=== PATIENT | male | born 1970 | race Caucasian/White ===

== ENCOUNTER 2016-12-08 11:55 | Emergency (ER) | payer OTHER ==
--- OUTSIDE RECORDS SUMMARY | 2016-12-08 12:23 | XMS REPORT | Continuity of Care Document ---
:1970 Author Organization [facility] ([facility]) Address [address] [place] [address] Phone [phone] Care Team Providers Name Role Phone Kary Bray Primary Care Provider [phone] Source Comments This disclosure is being made pursuant to the Care Everywhere program, applicable federal and state laws, and may not contain all informaitonavailable regarding this patient.[facility] ([facility]) Active Allergies and Adverse Reactions Allergen Noted Date Severity Reactions Comments Codeine Unknown Fish Containing Products Unknown Other Agent Unknown contrast dye Current Medications Prescription Sig. Disp. Refills Start Date End Date Status MELOXICAM PO Take 7.5 mg by mouth Active daily. Indications: RA aspirin 325 mg tablet Take 325 mg by mouth Active daily. Indications: paroxysmal A. fib ranitidine (ZANTAC) Take 150 mg by mouth Active 150 mg tablet 2 times daily. Indications: HEARTBURN predniSONE 10 mg 6 tabs for 2 days , 5 42 Tab 0 12/14/2012 Active tablet tabs for 2 days, 4 tabs for 2 days, 3 tabs for 2 days, 2 tabs for 2 days, 1 tab for 2 days. Indications: RA flare atenolol 25 mg tablet Take 1 Tab by mouth 30 Tab 1 11/07/2013 Active daily. Pt needs apt for further refills. Indications: HYPERTENSION Active Problems Problem Noted Date Rheumatoid factor positive 12/14/2012 Joint pain 12/14/2012 HTN (hypertension) 11/14/2012 Paroxysmal Atrial fibrillation in 90s 11/14/2012 Overview: 2/2 cocaine abuse requiring cardioversion x 2, the last being in 1987 Resolved Problems Problem Noted Date Resolved Date C. difficile diarrhea 11/14/2012 11/14/2012 SURGERY FOLLOWUP, UNSPEC 10/02/2002 11/14/2012 OLD DISRUPT ANT CRUCIATE 06/28/2002 11/14/2012 Social History Tobacco Use Types Packs/Day Years Used Date Never Smoker Smokeless Tobacco: Never Used Alcohol Use Drinks/Week oz/Week Comments No Last Filed Vital Signs Vital Sign Reading Time Taken Blood Pressure 132/66 12/16/2012 9:47 AM CDT Pulse 72 12/16/2012 9:47 AM CDT Temperature 35.8 C (96.4 F) 12/14/2012 9:18 AM CDT Respiratory Rate 16 10/07/2012 6:38 PM [employer] Height 1.85 m (6' 0.83") 12/16/2012 9:47 AM CDT Weight 121.3 kg (267 lb 6.7 oz) 12/16/2012 9:47 AM CDT Body Mass Index 35.44 12/16/2012 9:47 AM CDT Oxygen Saturation 98% 12/16/2012 9:47 AM CDT Plan of Care Patient Goal Type Goal Diet Cut out extra servings Blood Pressure Blood Pressure below 130/80 Health Maintenance Due Date Last Done Comments Hepatitis B Vaccine (1 of 3 - Primary 1970 Series) Tdap Vaccine 02/21/1980 MMR Vaccine 1987 Td Vaccine 1987 Influenza Vaccine: Seasonal (#1) 03/02/2016 Lipid Disorder Screening 11/14/2017 11/14/2012, 03/17/2004 Results from Last 3 Months Not on file
[2016-12-08 12:31] LABS: Hematocrit 42.7 % (42.0-52.0); Hemoglobin 14.4 gm/dL (13.5-18.0); Mean Cell Volume 83.1 fl (78-100); Mean Corpuscular Hgb Conc 33.7 g/dl (32-36); Mean Platelet Volume 10.1 fl (6.0-9.5); Neutrophil # 3.8 K/mm3 (1.3-6.0); Neutrophil % 55.3 % (42-75.0); Platelet Count 190 K/mm3 (150-450); Red Blood Count 5.14 M/mm3 (4.7-6.0); Red Cell Distribution Width 12.8 % (11.5-14.0)
--- NOTE | 2016-12-08 12:46 | ERNOTE ---
Medical Problem HPI - Narrative Date of Service: 12/08/16 - General Chief Complaint: General Assessment Time Seen by Provider: 12/08/16 12:05 Source: patient Exam Limitations: no limitations - Immun/Allergies/Home Medications Immunizations: IMMUNIZATION HX Immunizations Up to Date Yes History of Influenza Vaccine No Hx Pneumococcal Vaccination No Allergies/Adverse Reactions: Allergies IVP Dye Allergy (Severe, Uncoded 12/08/16 12:07) resp difficulty Home Medications: HOME MEDICATIONS ALPRAZolam [Xanax] 0.5 mg PO BID PRN 12/08/16 [Last Taken Unknown] Lisdexamfetamine Dimesylate [Vyvanse] 30 mg PO DAILY 12/08/16 [Last Taken Unknown] 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 He relates that he has been having left chest pain for months. He has been seen by Dr Christianson and had stress testing and his heart checked out. He relates the pain is essentially constant left chest and it hurts to push on his chest wall there and when he does he can feel it in his throat. He feels like he has difficulty swallowing and feels like some things come up at times. Vomited once. No abdominal pain. No diarrhea. He feels like he needs to force things down at times. Has never had EGD. TAkes histamine louie for his throat. Timing: other - fluctuating intensity Modifying Factors - (Improves): Present: other - nothing Review of Systems - Review of Systems Constitutional: Absent: fever Respiratory: Absent: shortness of breath Cardiology: Present: See HPI Gastrointestinal/Abdominal: Absent: abdominal pain Genitourinary: Absent: dysuria Musculoskeletal: Present: other - Hx back pain Skin: Absent: rash - Patient's Past Medical History Patient History - Medical: GERD, Kidney stone, Rheumatoid Arthritis, Other Patient History - Cardiac/Respiratory: Atrial Fibrillation, Asthma, Hypertension , Hyperlipidemia Patient History - Cancer: No Hx of Cancer Patient History - Surgical Procedures: Back Surgery, Other, Orthopedic Patient History - Other: None - Family History Father Family History - Medical: Family History - Cardiac/Respiratory: Cardiac Arrest, Hypertension Mother Family History - Medical: - Social History Living Situations: home Abuse History: No History of abuse Psych History: Hx of Anxiety Does anyone smoke in the home?: No Smoking Status: Never smoker Alcohol Use: none Drug Use: marijuana - Immunizations Immunizations Up to Date: Yes Hx Pneumococcal Vaccination: No History of Influenza Vaccine: No Physical Exam - Physical Exam General Appearance: Present: alert, no apparent distress Eye Exam: Normal inspection: bilateral, PERRL: bilateral Ears, Nose, Throat: Present: normal ENT inspection Neck: Present: normal inspection Respiratory: Present: no respiratory distress, normal breath sounds, no accessory muscle use, lungs clear, chest tenderness, other - he has completely reproducible tenderness left upper chest that completely reproduces his chest Sx. Cardiovascular/Chest: Present: regular rate, rhythm, normal peripheral pulses Gastrointestinal/Abdominal: Present: normal bowel sounds, nontender, nondistended, soft. Absent: tenderness Back Exam: Present: normal range of motion Extremity Exam: Present: normal inspection, other - no DVT findings Neurological Exam: Present: alert, normal mood/affect, no motor/sensory deficits Skin Exam: Present: normal color, warm/dry. Absent: skin rash ED Progress - Results and Orders Patient's Lab Results:: I have reviewed the patient's lab results. - Vital Signs Patient's Vital Signs:: I have reviewed the patient's vital signs. Vital Signs: Vital Signs 12/08/16 11:59 Temperature 36.7 C Pulse Rate 81 Respiratory 13 Rate Blood Pressure 142/100 O2 Sat by Pulse 98 Oximetry - EKG EKG: NSR EKG read: Interp. by me EKG Comments: NSR rate 72. No evidence of STEMI. - X-Ray X-Ray #1 X-Ray: chest Interpretation: Reviewed by me X-ray Comments: I reviewed official CXR report and discussed this with the patient. He was notified of findings that need to be followed-up with his primary doctor. - Progress/Reassessment Chief Complaint: General Assessment Progress Note-Subjective: 12/08/16 13:12 Nothing to suggest PE or aortic dissection clinically. No evidence of ACS, prolonged Sx with neg trop, no need for second trop and completely reproducible Sx with chest wall Sx. His primary c/o was difficulty swallowing, not acte but gradually getting worse over last 2 months. No esophageal obstruction at this time but does need f/u for EGD. Departure - Departure Clinical Impression: Atypical chest pain Disposition: Home self-care Condition: Stable Additional Instructions: Rest. You need to be seen for consideration of an upper endoscopy. Please follow-up as soon as possible. Return if your condition worsens or changes in any way. Referrals: Miladis Gibbs ARNP [Primary Care Provider] -
[2016-12-08 12:49] LABS: ALT 30 U/L (19-67); AST 23 U/L (0-48); Albumin * 4.2 gm/dl (3.4-5.0); Alkaline Phosphatase * 98 U/L (50-170); Anion Gap 11.2 mmol/L (6.8-13.8); BUN/Creatinine Ratio 18.2 (9.0-21.6); Bilirubin, Total 0.4 mg/dL (0.0-1.1); Blood Urea Nitrogen 18 mg/dL (6-23); Ca. Corrected For Albumin 8.6 mg/dL (8.4-10.2); Calcium * 9.1 mg/dL (7.9-10.9); Carbon Dioxide 29.7 mmol/L (24-32.6); Chloride 105 mmol/L (97-106); Glucose * 100 mg/dL (70-110); Lipase 283 U/L (73-393); Potassium 3.9 mmol/L (3.4-4.6); Sodium 142 mmol/L (132-142); Total Protein 7.9 gm/dL (6.2-8.2)
[2016-12-08 12:50] LABS: Troponin I Less than 0.017 ng/ml (0.00-0.10)
[2016-12-08 13:18] VITALS: BP 152/85
== END 2016-12-08 13:10 | disposition home or self-care (01) ==
LOC: ER 11:55
DX: R07.89 Other chest pain (principal); Z87.442 Personal history of urinary calculi; F41.9 Anxiety disorder, unspecified; K21.9 Gastro-esophageal reflux disease without esophagitis

== ENCOUNTER 2017-03-11 12:32 | Emergency (ER) | payer OTHER ==
[2017-03-11] MEDS ORDERED: CYCLOBENZAPRINE HCL 10 MG TABLET PO ONE (13:03)
[2017-03-11] MEDS ORDERED: CYCLOBENZAPRINE HCL 10 MG TABLET ONE (13:09)
--- NOTE | 2017-03-11 13:11 | ERNOTE ---
Back Pain ER HPI Date of Service: 03/11/17 Presenting Symptoms: hx chronic back pain Time Seen by Provider: 03/11/17 12:54 Source: patient Exam Limitations: no limitations Immunizations: IMMUNIZATION HX Immunizations Up to Date Yes History of Influenza Vaccine No Hx Pneumococcal Vaccination No Allergies/Adverse Reactions: Allergies IVP Dye Allergy (Severe, Uncoded 03/11/17 12:50) resp difficulty Home Medications: HOME MEDICATIONS ALPRAZolam [Xanax] 0.5 mg PO BID PRN 12/08/16 [Last Taken Unknown] Dextroamphetamine/Amphetamine [Adderall 30 mg Tablet] 30 mg PO BID 03/11/17 [ Last Taken Unknown] Lidocaine [Lidoderm 5%] 1 patch TP DAILY PRN #30 patch 03/11/17 [Last Taken Unknown] Naproxen [Naprosyn] 500 mg PO BID PRN #60 tab 03/11/17 [Last Taken Unknown] Omeprazole 40 mg PO DAILY 03/11/17 [Last Taken Unknown] Narrative: Pt. comes in with c/o L lower back pain for four days. Pt. denies any recent illness or injury, SOB, CP, dysuria, NVD, numbness, or tingling. Pt. has a hx of chronic back pain and took tramadol, naproxen, Ibuprofen and Tylenol for pain without relief. Pt. states that movement exacerbates the pain. Review of Systems - Review of Systems Constitutional: Present: no symptoms reported. Absent: recent illness, fever, chills, weakness, fatigue, malaise EYE: Present: no symptoms reported ENT: Present: no symptoms reported Respiratory: Present: no symptoms reported. Absent: shortness of breath, cough , wheezing Cardiology: Present: no symptoms reported. Absent: chest pain, palpitations, edema Gastrointestinal/Abdominal: Present: no symptoms reported Genitourinary: Present: no symptoms reported Musculoskeletal: Present: back pain - L lower back Skin: Present: no symptoms reported All Other Systems: All systems neg except as marked - Patient's Past Medical History Patient History - Medical: GERD, Kidney stone, Rheumatoid Arthritis Patient History - Cardiac/Respiratory: Atrial Fibrillation, Asthma, Hypertension , Hyperlipidemia Patient History - Cancer: No Hx of Cancer Patient History - Surgical Procedures: Back Surgery, Other, Orthopedic Patient History - Other: None - Family History Father Family History - Medical: Family History - Cardiac/Respiratory: Cardiac Arrest, Hypertension Mother Family History - Medical: - Social History Living Situations: home Abuse History: No History of abuse Psych History: Hx of Anxiety Does anyone smoke in the home?: No Smoking Status: Never smoker Alcohol Use: none Drug Use: marijuana - Immunizations Immunizations Up to Date: Yes Hx Pneumococcal Vaccination: No History of Influenza Vaccine: No Physical Exam - Physical Exam General Appearance: Present: wd/wn, alert, no apparent distress Head Exam: Present: normal inspection, no evidence of injury Eye Exam: Normal inspection: bilateral, PERRL: bilateral, EOMI: bilateral Ears, Nose, Throat: Present: normal ENT inspection, normal pharynx Neck: Present: normal inspection, nontender. Absent: lymphadenopathy (R), lymphadenopathy (L) Respiratory: Present: no respiratory distress, normal breath sounds, no accessory muscle use, chest nontender, lungs clear Cardiovascular/Chest: Present: regular rate, rhythm, no murmur, normal peripheral pulses Gastrointestinal/Abdominal: Present: normal bowel sounds, nontender, nondistended, soft, no organomegaly Back Exam: Present: decreased range of motion - rotation and flexion, muscle spasm, other - L paraspinous. 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 Absent: pallor, skin rash ED Progress - Date and Time Seen: Date and Time: 03/11/17 14:46 Pt. imaging negative but urine with blood in it so pt. most likely has renal colic after stone passage. - Results and Orders Patient's Lab Results:: I have reviewed the patient's lab results. Results and Orders: hematuria - Vital Signs Patient's Vital Signs:: I have reviewed the patient's vital signs. Vital Signs: Vital Signs 03/11/17 12:34 Temperature 36.7 C Pulse Rate 84 Respiratory 15 Rate Blood Pressure 124/90 O2 Sat by Pulse 96 Oximetry - X-Ray X-Ray #1 X-Ray: lumbosacral Interpretation: Reviewed by me X-ray Comments: no acute ossious abnormality - CT/Ultrasound CT/Ultrasound Narrative: CT without evidence of renal stone - Progress/Reassessment Chief Complaint: Back Pain Departure Clinical Impression: Renal colic on left side Chronic back pain Qualifiers: Back pain location: low back pain Back pain laterality: left Sciatica presence : without sciatica Qualified Code(s): M54.5 - Low back pain; G89.29 - Other chronic pain - Departure Disposition: Home self-care Condition: Good Instructions: Chronic Pain, Renal Colic, [id number] Additional Instructions: Please follow up with primary provider in 2-3 days. Referrals: Miladis Gibbs ARNP [Primary Care Provider] - Prescriptions: Lidocaine [Lidoderm 5%] 1 patch TP DAILY PRN #30 patch PRN Reason: Pain Naproxen [Naprosyn] 500 mg PO BID PRN #60 tab PRN Reason: Pain
[2017-03-11 13:18] LABS: Urine Bilirubin Negative (NEGATIVE); Urine Blood 50 /ul (NEGATIVE); Urine Ketone Negative (NEGATIVE); Urine Nitrite Negative (NEGATIVE); Urine Protein Negative (NEGATIVE); Urine Specific Gravity >=1.030 SP.GR. (1.005-1.030); Urine Urobilinogen Normal (NORMAL); Urine pH 5.5 pH (5.0-7.0)
[2017-03-11] MEDS ORDERED: LIDOCAINE 1 PATCH ADH..PATCH TP ONE (13:30)
[2017-03-11 13:36] LABS: Urine Appearance Clear; Urine Bacteria TRACE; Urine Color Yellow; Urine Mucus Moderate - 2+; Urine WBC TRACE /hpf (0-5)
[2017-03-11] MEDS ORDERED: KETOROLAC TROMETHAMINE 30 MG/ML VIAL IV ONE (13:58)
[2017-03-11] MEDS ORDERED: KETOROLAC TROMETHAMINE 30 MG/ML VIAL ONE (14:01)
[2017-03-11] MEDS ORDERED: NALBUPHINE HCL 20 MG/ML AMPUL IV ONE (14:36)
[2017-03-11] MEDS ORDERED: NALBUPHINE HCL 20 MG/ML AMPUL ONE (14:37)
[2017-03-12 16:29] VITALS: BP 134/82
== END 2017-03-11 15:07 | disposition home or self-care (01) ==
LOC: ER 12:32
DX: N23 Unspecified renal colic (principal); M54.5 Low back pain; G89.29 Other chronic pain; K21.9 Gastro-esophageal reflux disease without esophagitis

== ENCOUNTER 2017-06-17 05:38 | Emergency (ER) | payer OTHER ==
[2017-06-17 06:20] LABS: Hematocrit 44.1 % (42.0-52.0); Hemoglobin 15.3 gm/dL (13.5-18.0); Mean Cell Volume 83.2 fl (78-100); Mean Corpuscular Hemoglobin 28.9 pg (27-31); Mean Corpuscular Hgb Conc 34.7 g/dl (32-36); Mean Platelet Volume 10.3 fl (6.0-9.5); Neutrophil # 3.4 K/mm3 (1.3-6.0); Neutrophil % 52.5 % (42-75.0); Platelet Count 205 K/mm3 (150-450); Red Cell Distribution Width 12.4 % (11.5-14.0); White Blood Count 6.5 K/mm3 (4.0-10.5)
--- NOTE | 2017-06-17 06:22 | ERNOTE ---
Dizziness ER Record Presenting Symptoms: dizziness Time Seen by Provider: 06/17/17 05:56 Source: patient Exam Limitations: no limitations Immunizations: IMMUNIZATION HX Immunizations Up to Date Yes History of Influenza Vaccine No Hx Pneumococcal Vaccination No Allergies/Adverse Reactions: Allergies Allergy/AdvReac Type Severity Reaction Status Date / Time IVP Dye Allergy Severe resp Uncoded 06/17/17 05:49 difficulty Home Medications: HOME MEDICATIONS Atenolol [Tenormin] 25 mg PO DAILY #7 tablet 06/17/17 [Last Taken Unknown] Dextromethorphan Hb/Doxylamine [Vicks Nyquil Cough Liquid] 1 dose PO HS PRN [Last Taken Unknown] - History of Present Illness Narrative: Woke up feeling dizzy (off balance and foggy) and blood pressure was elevated. Timing and Duration: gradual onset Severity: max: moderate Severity: currently: moderate Associated Symptoms: Absent: hearing loss, ringing/roaring in ear, ear pain Sense of movement: Present: vague Modifying Factors - (Worsens): Reports: changing position Review of Systems - Review of Systems Constitutional: Present: recent illness - "cold" EYE: Present: no symptoms reported ENT: Present: nose congestion, nasal drainage Respiratory: Present: cough - mostly in the am Cardiology: Present: chest pain - intermittantly none today Gastrointestinal/Abdominal: Absent: nausea, vomiting Genitourinary: Present: no symptoms reported Musculoskeletal: Present: muscle pain, muscle stiffness Skin: Absent: rash Neurological: Present: See HPI, dizziness/light-headedness Endocrine: Present: no symptoms reported Hematologic/Lymphatic: Present: no symptoms reported Psych: Present: no symptoms reported - Patient's Past Medical History Patient History - Medical: GERD, Kidney stone, Rheumatoid Arthritis Patient History - Cardiac/Respiratory: Atrial Fibrillation, Asthma, Hypertension , Hyperlipidemia Patient History - Cancer: No Hx of Cancer Patient History - Surgical Procedures: Back Surgery, Other, Orthopedic Patient History - Other: None - Family History Father Family History - Medical: Family History - Cardiac/Respiratory: Cardiac Arrest, Hypertension Mother Family History - Medical: - Social History Living Situations: home Abuse History: No History of abuse Psych History: Hx of Anxiety Smoking Status: Never smoker Have you smoked in the past 12 months: No Alcohol Use: none Drug Use: none - Immunizations Immunizations Up to Date: Yes Hx Pneumococcal Vaccination: No History of Influenza Vaccine: No Physical Exam - Physical Exam General Appearance: Present: wd/wn, alert, no apparent distress Head Exam: Present: normal inspection, no evidence of injury Eye Exam: Normal inspection: bilateral Ears, Nose, Throat: Present: pharyngeal erythema - posterior with PND . Absent : tonsillar exudate, tonsillar swelling Neck: Present: normal inspection, nontender Respiratory: Present: no respiratory distress, normal breath sounds, no accessory muscle use, lungs clear Cardiovascular/Chest: Present: regular rate, rhythm, no murmur Gastrointestinal/Abdominal: Present: normal bowel sounds, nontender, nondistended, soft Back Exam: Present: normal inspection, normal range of motion, no CVA tenderness , no vertebral tenderness Extremity Exam: Present: normal inspection, no edema Neurological Exam: Present: alert, oriented, normal mood/affect, no motor/ sensory deficits Skin Exam: Present: normal color, warm/dry Lymphatic Exam: Present: no adenopathy ED Progress - Results and Orders Patient's Lab Results:: I have reviewed the patient's lab results. Results and Orders: Laboratory Tests 06/17/17 06/17/17 06:17 06:17 WBC 6.5 Hgb 15.3 Hct 44.1 Plt Count 205 Sodium 140 Potassium 3.7 Chloride 102 BUN 18 Creatinine 1.07 Random Glucose 106 Calcium 9.1 Total Bilirubin 0.4 AST 20 ALT 27 Alkaline Phosphatase 105 Troponin I Less than 0.017 Total Protein 8.0 Albumin 4.3 - Vital Signs Patient's Vital Signs:: I have reviewed the patient's vital signs. Vital Signs: Vital Signs 06/17/17 06/17/17 05:41 05:47 Temperature 36.3 C L Pulse Rate 77 88 Respiratory 18 Rate Blood Pressure 169/112 O2 Sat by Pulse 98 Oximetry - EKG EKG: NSR, no ST T wave changes EKG read: Interp. by me - X-Ray X-Ray #1 X-Ray: chest Interpretation: Interp. by me X-ray Comments: No infiltrate or effusion. 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 Departure Clinical Impression: Hypertension Qualifiers: Hypertension type: essential hypertension Qualified Code(s): I10 - Essential ( primary) hypertension Upper respiratory infection Qualifiers: URI type: acute nasopharyngitis (common cold) Qualified Code(s): J00 - Acute nasopharyngitis [common cold] - Departure Disposition: Home Follow Up Needed Condition: Good Instructions: Upper Respiratory Infection, Adult, [id number], Hypertension, [id number] Additional Instructions: See your primary care provider as soon as possible to discuss ongoing treatment of your hypertension. Use mucinex or (similar store brand) twice a day to help with congestion. Prescriptions: Atenolol [Tenormin] 25 mg PO DAILY #7 tablet
[2017-06-17 06:37] LABS: ALT 27 U/L (19-67); AST 20 U/L (0-48); Albumin * 4.3 gm/dl (3.4-5.0); Alkaline Phosphatase * 105 U/L (50-170); Anion Gap 12.2 mmol/L (6.8-13.8); BUN/Creatinine Ratio 16.8 (9.0-21.6); Bilirubin, Total 0.4 mg/dL (0.0-1.1); Blood Urea Nitrogen 18 mg/dL (6-23); Ca. Corrected For Albumin 8.5 mg/dL (8.4-10.2); Calcium * 9.1 mg/dL (7.9-10.9); Carbon Dioxide 29.5 mmol/L (24-32.6); Chloride 102 mmol/L (97-106); Glucose * 106 mg/dL (70-110); Potassium 3.7 mmol/L (3.4-4.6); Sodium 140 mmol/L (132-142)
[2017-06-17 06:38] LABS: Troponin I Less than 0.017 ng/ml (0.00-0.10)
[2017-06-17] MEDS ORDERED: ATENOLOL 50 MG TABLET PO ONE (07:15)
[2017-06-17] MEDS ORDERED: ATENOLOL 50 MG TABLET ONE (07:21)
[2017-06-17 07:25] VITALS: BP 168/104
== END 2017-06-17 07:38 | disposition home or self-care (01) ==
LOC: ER 05:38
DX: I10 Essential (primary) hypertension (principal); J00 Acute nasopharyngitis [common cold]; Z87.442 Personal history of urinary calculi

== ENCOUNTER 2017-06-22 20:43 | Emergency (ER) | payer OTHER ==
[2017-06-22] MEDS ORDERED: ASPIRIN 81 MG TAB.CHEW ONE (20:55)
[2017-06-22] MEDS ORDERED: ASPIRIN 81 MG TAB.CHEW PO ONE (20:58)
--- NOTE | 2017-06-22 21:12 | ERNOTE ---
<Emil Patrickle - Last Filed: 06/22/17 21:50> Chest Pain/Cardiac HPI Date of Service: 06/22/17 Chief Complaint: Chest Pain Time Seen by Provider: 06/22/17 21:02 Source: patient, family, RN notes reviewed Exam Limitations: no limitations Immunizations: IMMUNIZATION HX Immunizations Up to Date Yes History of Influenza Vaccine No Hx Pneumococcal Vaccination No Allergies/Adverse Reactions: Allergies IVP Dye Allergy (Severe, Uncoded 06/17/17 05:49) resp difficulty Home Medications: HOME MEDICATIONS Atenolol [Tenormin] 25 mg PO DAILY #7 tablet 06/17/17 [Last Taken Unknown] Aspirin 81 mg PO DAILY 06/22/17 [Last Taken Unknown] Omeprazole 20 mg PO DAILY 06/22/17 [Last Taken Unknown] Narrative: 47 year old male brought to the ED by private vehicle for chest pain. 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 The person with him reports seeing a lump on the right side of his neck that was traveling towards his head. He also began having a headache, chest pain, and a strange taste in his mouth at that time. He reports feeling like his right arm is not working right and that his tongue is going numb. He was seen here recently for hypertension. He saw his PCP today for a recheck and reports everything was fine. Date (Duration): 06/22/17 Time (Timing): 20:20 Severity/Quality: moderate Location: other - Right chest Chest Pain Radiation: no radiation Activities at Onset: activity Nitro Today/Relief: no nitro taken today Aspirin Treatment Today: no aspirin today Associated Symptoms: Present: headache, nausea, weakness. Absent: dizziness, syncope, cough, shortness of breath, diaphoresis, fever/chills, palpitations, heartburn, vomiting, abdominal pain, back pain, swelling/lump in chest Prior Treatment: Reports: recently seen, treated by physician Review of Systems - Review of Systems Constitutional: Present: recent illness. Absent: fever, fatigue, malaise EYE: Present: blurred vision. Absent: eye pain ENT: Present: no symptoms reported Respiratory: Absent: shortness of breath, cough Cardiology: Present: chest pain. Absent: palpitations, syncope Gastrointestinal/Abdominal: Present: nausea. Absent: vomiting, abdominal pain Genitourinary: Present: no symptoms reported Musculoskeletal: Present: neck pain. Absent: back pain Skin: Present: lumps. Absent: lesions, change in color Neurological: Present: headache, weakness, numbness, tingling. Absent: dizziness/light-headedness Endocrine: Present: no symptoms reported Hematologic/Lymphatic: Present: no symptoms reported Psych: Present: no symptoms reported - Patient's Past Medical History Patient History - Medical: GERD, Kidney stone, Rheumatoid Arthritis Patient History - Cardiac/Respiratory: Atrial Fibrillation, Asthma, Hypertension , Hyperlipidemia Patient History - Cancer: No Hx of Cancer Patient History - Surgical Procedures: Back Surgery, Other, Orthopedic Patient History - Other: None - Family History Father Family History - Medical: Family History - Cardiac/Respiratory: Cardiac Arrest, Hypertension Mother Family History - Medical: - Social History Living Situations: spouse Abuse History: No History of abuse Psych History: Hx of Anxiety Smoking Status: Never smoker Have you smoked in the past 12 months: No Do you dip or chew tobacco: No Alcohol Use: none Drug Use: none - Immunizations Immunizations Up to Date: Yes Hx Pneumococcal Vaccination: No History of Influenza Vaccine: No Physical Exam - Physical Exam General Appearance: Present: wd/wn, alert, moderate distress Head Exam: Present: normal inspection, no evidence of injury Eye Exam: PERRL: bilateral, Photophobia: bilateral Ears, Nose, Throat: Present: normal ENT inspection, normal pharynx Neck: Present: supple, full range of motion, tender lateral - Right. Absent: lymphadenopathy (R), lymphadenopathy (L) Respiratory: Present: no respiratory distress, no accessory muscle use, lungs clear, decreased breath sounds Cardiovascular/Chest: Present: regular rate, rhythm, no murmur Gastrointestinal/Abdominal: Present: nontender, nondistended, soft Extremity Exam: Present: normal inspection, normal range of motion, no edema Neurological Exam: Present: alert, oriented, other - tongue deviates to right . Absent: normal mood/affect, no motor/sensory deficits Skin Exam: Present: normal color, warm/dry ED Progress - Vital Signs Patient's Vital Signs:: I have reviewed the patient's vital signs. Vital Signs: Vital Signs 06/22/17 20:50 Temperature 37.2 C Pulse Rate 74 Respiratory 14 Rate Blood Pressure 173/104 O2 Sat by Pulse 98 Oximetry - X-Ray X-Ray #1 X-Ray: chest Interpretation: Reviewed by me X-ray Comments: No acute cardiopulmonary process noted - CT/Ultrasound CT/Ultrasound Narrative: Non-contrast head CT shows no acute intracranial process - Progress/Reassessment Chief Complaint: Chest Pain Progress:: Unchanged - Transfer of Care Physician Sign Out: Nicki Patrick Receiving Physician: Catarino Cheema Pending Results: Labs, Pain-control Expected Disposition: Discharge Additional Notes: Head CT, CXR and CBC are unremarkable. Toradol and Zofran ordered. Patient's neurologic symptoms have subsided currently. 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 Results and Orders: Laboratory Tests 06/22/17 06/22/17 06/22/17 21:20 21:20 21:20 WBC Hgb Hct Plt Count ESR 9 PT 10.1 INR (Anticoag Therapy) 1.01 PTT ([place]) 26.6 Sodium 141 Potassium 3.6 Chloride 103 Carbon Dioxide 29.0 Anion Gap 12.6 BUN/Creatinine Ratio 18.3 Random Glucose 107 Calcium 9.4 Total Bilirubin 0.4 AST 23 ALT 29 Alkaline Phosphatase 101 Troponin I Less than 0.017 Total Protein 7.7 Albumin 4.1 Urine Color Urine Appearance Urine pH Ur Specific [place] Urine Protein Urine Glucose (UA) Urine Ketones Urine Blood Urine Nitrate Urine Bilirubin Urine Urobilinogen Ur Leukocyte Esterase Urine RBC Urine WBC Ur Epithelial Cells Amorphous Sediment Urine Bacteria Urine Culture Comments Urine Opiates Screen Barbiturate Screen Ur Phencyclidine Scrn Urine Amphetamine U Benzodiazepines Scrn Urine Cocaine Screen Urine Marijuana (THC) Ethyl Alcohol 06/22/17 06/22/17 06/22/17 21:25 21:29 21:29 WBC 8.2 Hgb 14.9 Hct 43.1 Plt Count 215 ESR PT INR (Anticoag Therapy) PTT ([place]) Sodium Potassium Chloride Carbon Dioxide Anion Gap BUN/Creatinine Ratio Random Glucose Calcium Total Bilirubin AST ALT Alkaline Phosphatase Troponin I Total Protein Albumin Urine Color Yellow Urine Appearance Cloudy Urine pH 7.5 Ur Specific [place] 1.015 Urine Protein Negative Urine Glucose (UA) Negative Urine Ketones Negative Urine Blood 5 H Urine Nitrate Negative Urine Bilirubin Negative Urine Urobilinogen Normal Ur Leukocyte Esterase Negative Urine RBC None seen Urine WBC None seen Ur Epithelial Cells Trace Amorphous Sediment Many - 3+ H Urine Bacteria 2+ H Urine Culture Comments No culture indicated Urine Opiates Screen Negative Barbiturate Screen Negative Ur Phencyclidine Scrn Negative Urine Amphetamine Negative U Benzodiazepines Scrn Negative Urine Cocaine Screen Negative Urine Marijuana (THC) Positive H Ethyl Alcohol 06/22/17 21:32 WBC Hgb Hct Plt Count ESR PT INR (Anticoag Therapy) PTT (Bernarda) Sodium Potassium Chloride Carbon Dioxide Anion Gap BUN/Creatinine Ratio Random Glucose Calcium Total Bilirubin AST ALT Alkaline Phosphatase Troponin I Total Protein Albumin Urine Color Urine Appearance Urine pH Ur Specific [place]ley Urine Protein Urine Glucose (UA) Urine Ketones Urine Blood Urine Nitrate Urine Bilirubin Urine Urobilinogen Ur Leukocyte Esterase Urine RBC Urine WBC Ur Epithelial Cells Amorphous Sediment Urine Bacteria Urine Culture Comments Urine Opiates Screen Barbiturate Screen Ur Phencyclidine Scrn Urine Amphetamine U Benzodiazepines Scrn Urine Cocaine Screen Urine Marijuana (THC) Ethyl Alcohol Less than 3.0 - Vital Signs Vital Signs: Vital Signs 06/22/17 06/22/17 06/22/17 20:50 21:19 21:29 Temperature 37.2 C Pulse Rate 74 75 68 Respiratory 14 13 17 Rate Blood Pressure 173/104 154/95 138/84 O2 Sat by Pulse 98 98 96 Oximetry 06/22/17 06/22/17 06/22/17 21:35 21:46 21:56 Temperature Pulse Rate 67 70 70 Respiratory 14 13 16 Rate Blood Pressure 149/89 159/80 137/83 O2 Sat by Pulse 96 95 96 Oximetry 06/22/17 22:30 Temperature Pulse Rate 67 Respiratory 15 Rate Blood Pressure 143/73 O2 Sat by Pulse 97 Oximetry - EKG EKG: NSR
[2017-06-22 21:26] LABS: Hematocrit 43.1 % (42.0-52.0); Hemoglobin 14.9 gm/dL (13.5-18.0); Mean Corpuscular Hemoglobin 28.7 pg (27-31); Mean Corpuscular Hgb Conc 34.6 g/dl (32-36); Mean Platelet Volume 10.2 fl (6.0-9.5); Neutrophil # 4.1 K/mm3 (1.3-6.0); Neutrophil % 49.6 % (42-75.0); Platelet Count 215 K/mm3 (150-450); Red Blood Count 5.19 M/mm3 (4.7-6.0); Red Cell Distribution Width 12.6 % (11.5-14.0); White Blood Count 8.2 K/mm3 (4.0-10.5)
[2017-06-22 21:43] LABS: Prothrombin Time (Patient) 10.1 Seconds (9.0-11.0)
[2017-06-22] MEDS ORDERED: KETOROLAC TROMETHAMINE 30 MG/ML VIAL IV ONE (21:45)
[2017-06-22] MEDS ORDERED: ONDANSETRON HCL/PF 2 MG/ML VIAL IV ONE (21:49)
[2017-06-22 21:50] LABS: ALT 29 U/L (19-67); AST 23 U/L (0-48); Albumin * 4.1 gm/dl (3.4-5.0); Alkaline Phosphatase * 101 U/L (50-170); Anion Gap 12.6 mmol/L (6.8-13.8); BUN/Creatinine Ratio 18.3 (9.0-21.6); Bilirubin, Total 0.4 mg/dL (0.0-1.1); Blood Urea Nitrogen 21 mg/dL (6-23); Calcium * 9.4 mg/dL (7.9-10.9); Chloride 103 mmol/L (97-106); Glucose * 107 mg/dL (70-110); Potassium 3.6 mmol/L (3.4-4.6); Sodium 141 mmol/L (132-142); Total Protein 7.7 gm/dL (6.2-8.2)
[2017-06-22 21:51] LABS: INR 1.01 INR (0.90-1.10); Partial Thrombolplastin Time 26.6 Seconds (24-32); Troponin I Less than 0.017 ng/ml (0.00-0.10)
[2017-06-22] MEDS ORDERED: ONDANSETRON HCL/PF 2 MG/ML VIAL ONE (21:51)
[2017-06-22] MEDS ORDERED: KETOROLAC TROMETHAMINE 30 MG/ML VIAL ONE (21:51)
[2017-06-22 21:57] LABS: Urine Bilirubin Negative (NEGATIVE); Urine Ketone Negative (NEGATIVE); Urine Nitrite Negative (NEGATIVE); Urine Protein Negative (NEGATIVE); Urine Specific Gravity 1.015 SP.GR. (1.005-1.030); Urine Urobilinogen Normal (NORMAL); Urine pH 7.5 pH (5.0-7.0)
[2017-06-22 22:08] LABS: Urine Appearance Cloudy; Urine Blood 5 /ul (NEGATIVE); Urine Color Yellow; Urine RBC None Seen /hpf (0-5); Urine WBC None Seen /hpf (0-5)
[2017-06-22 22:09] LABS: Urine Amorphous Sediment Many - 3+ (NONE-FEW); Urine Bacteria 2+
[2017-06-22 22:11] LABS: Cocaine Ur Negative (NEGATIVE); Urine Barbiturate Negative (NEGATIVE); Urine Benzodiazepines Negative (NEGATIVE); Urine Opiates Negative (NEGATIVE); Urine PCP Negative (NEGATIVE)
[2017-06-22 22:12] LABS: Urine THC Positive (NEGATIVE)
[2017-06-22] MEDS ORDERED: METOCLOPRAMIDE HCL 5 MG/ML VIAL IV ONE (22:21)
[2017-06-22] MEDS ORDERED: diphenhydrAMINE HCL 50 MG/ML VIAL IV ONE (22:22)
[2017-06-22] MEDS ORDERED: diphenhydrAMINE HCL 50 MG/ML VIAL ONE (22:23)
[2017-06-22] MEDS ORDERED: NORMAL SALINE 1,000 ML IV ONE (22:23)
[2017-06-22] MEDS ORDERED: METOCLOPRAMIDE HCL 5 MG/ML VIAL ONE (22:23)
[2017-06-22 23:50] VITALS: BP 131/72
== END 2017-06-22 23:33 | disposition home or self-care (01) ==
LOC: ER 20:43
DX: R07.9 Chest pain, unspecified (principal); R51 Headache; G43.409 Hemiplegic migraine, not intractable, without status migrainosus; K21.9 Gastro-esophageal reflux disease without esophagitis; I48.91 Unspecified atrial fibrillation; Z79.01 Long term (current) use of anticoagulants; I10 Essential (primary) hypertension
CPT/HCPCS: 36415; 70450; 71010; 80053; 80307; 81001; 84484; 85025; 85610; 85652; 85730; 93005; 96374; 96375; 99285; G0481; J2405